=== PATIENT | male | born 1990 | race Caucasian/White ===

== ENCOUNTER 2016-06-11 21:29 | Observation (INO) | payer BC, OTHER ==
[~2016-06-11] VITALS: Ht 170.2 cm; Wt 75.0 kg
[~2016-06-11 21:29] MED LIST: GUAI100S6 PO; Z.0.NO CURRENT MEDS
[2016-06-11 21:34] VITALS: BP 163/95; PULSE 102; RESP 18; TEMP 98.4; O2SAT 100
[2016-06-11] MEDS ORDERED: CEPH-460 PO (21:40)
--- NOTE | 2016-06-11 21:42 | PD ---
HPI Chief Complaint: Chest Pain Time Seen by Provider: 21:42 Travel History International Travel<30 days: No Contact w/Intl Traveler<30days: No Traveled to known affect area: No History of Present Illness HPI 26-year-old male presents to the emergency department for evaluation of left- sided chest pain. Patient states that while at work he felt like his heart was racing and he had a left-sided chest discomfort. He reports it more as a pressure. He also reports muscle cramping throughout the day. He states that this time he is not having any pain. He did not have any nausea or vomiting or diaphoresis associated with this. Patient states that he does recreationally do cocaine and he did some cocaine last evening. He states he did not sleep well and did not eat anything today. He denies any IV drug abuse. He states he is on Keflex for a laceration to his foot and he took this without anything today. Denies any cardiac history. Denies any other recent illnesses, fever, or chills. He is no other symptoms to report PFSH Past Medical History Medical History: Denies Significant Hx Diminished Hearing: No Gastrointestinal Disorders: Yes (HX COLONOSCOPY, BOWEL INFLAMMATION) Musculoskeletal: Yes (LEFT TIBULA FX) Immunizations Current: Yes Social History Alcohol Use: No Tobacco Use: No Substance Use: No Allergies-Medications (Allergen,Severity, Reaction): Coded Allergies: Pediazole (Verified Allergy, Intermediate, RASH, 06/11/16) Reported Meds & Prescriptions Reported Meds & Active Scripts Active Reported Keflex (Cephalexin) 500 Mg Cap 500 Mg PO Q12H Review of Systems Except as stated in HPI: all other systems reviewed are Neg Physical Exam Narrative GENERAL: Well-nourished male patient, lying in bed in no acute distress SKIN: Focused skin assessment warm/dry. HEAD: Atraumatic. Normocephalic. EYES: Pupils equal and round. No scleral icterus. No injection or drainage. ENT: No nasal bleeding or discharge. Mucous membranes pink and moist. NECK: Trachea midline. No JVD. CARDIOVASCULAR: Tachycardic rate and rhythm. No murmur appreciated. RESPIRATORY: No accessory muscle use. Clear to auscultation. Breath sounds equal bilaterally. GASTROINTESTINAL: Abdomen soft, non-tender, nondistended. Hepatic and splenic margins not palpable. MUSCULOSKELETAL: No obvious deformities. No clubbing. No cyanosis. No edema. NEUROLOGICAL: Awake and alert. No obvious cranial nerve deficits. Motor grossly within normal limits. Normal speech. PSYCHIATRIC: Appropriate mood and affect Data Data Last Documented VS Vital Signs Date Time Temp Pulse Resp B/P Pulse Ox O2 Delivery O2 Flow Rate FiO2 06/11/16 23:06 100 18 147/87 100 Room Air 06/11/16 21:34 98.4 Orders Electrocardiogram (06/11/16 21:40) Basic Metabolic Panel (Bmp) (06/11/16 21:40) Ckmb (Isoenzyme) Profile (06/11/16 21:40) Complete Blood Count With Diff (06/11/16 21:40) Magnesium (Mg) (06/11/16 21:40) Prothrombin Time / Inr (Pt) (06/11/16 21:40) Act Partial Throm Time (Ptt) (06/11/16 21:40) Troponin I (06/11/16 21:40) Chest, Single Ap (06/11/16 21:40) Ecg Monitoring (06/11/16 21:40) Bilateral Bp Monitoring (06/11/16 21:40) Iv Access Insert/Monitor (06/11/16 21:40) Oximetry (06/11/16 21:40) Oxygen Administration (06/11/16 21:40) Sodium Chloride 0.9% Flush (Ns Flush) (06/11/16 21:45) Sodium Chlorid 0.9% 500 Ml Inj (Ns 500 M (06/11/16 21:45) Drug Screen, Random Urine (06/11/16 21:42) CKMB (06/11/16 21:45) CKMB% (06/11/16 21:45) Sodium Chlor 0.9% 1000 Ml Inj (Ns 1000 M (06/11/16 23:00) Sodium Chlor 0.9% 1000 Ml Inj (Ns 1000 M (06/11/16 23:00) Labs Laboratory Tests Test 06/11/16 06/11/16 21:45 22:35 White Blood Count 11.6 TH/MM3 Red Blood Count 5.18 MIL/MM3 Hemoglobin 15.2 GM/DL Hematocrit 45.2 % Mean Corpuscular Volume 87.4 FL Mean Corpuscular Hemoglobin 29.4 PG Mean Corpuscular Hemoglobin 33.7 % Concent Red Cell Distribution Width 13.1 % Platelet Count 243 TH/MM3 Mean Platelet Volume 7.4 FL Neutrophils (%) (Auto) 76.1 % Lymphocytes (%) (Auto) 14.3 % Monocytes (%) (Auto) 8.8 % Eosinophils (%) (Auto) 0.5 % Basophils (%) (Auto) 0.3 % Neutrophils # (Auto) 8.8 TH/MM3 Lymphocytes # (Auto) 1.7 TH/MM3 Monocytes # (Auto) 1.0 TH/MM3 Eosinophils # (Auto) 0.1 TH/MM3 Basophils # (Auto) 0.0 TH/MM3 CBC Comment DIFF FINAL Differential Comment Prothrombin Time 11.3 SEC Prothromb Time International 1.0 RATIO Ratio Activated Partial 24.1 SEC Thromboplast Time Sodium Level 135 MEQ/L Potassium Level 3.3 MEQ/L Chloride Level 101 MEQ/L Carbon Dioxide Level 23.8 MEQ/L Anion Gap 10 MEQ/L Blood Urea Nitrogen 5 MG/DL Creatinine 1.06 MG/DL Estimat Glomerular Filtration 84 ML/MIN Rate Random Glucose 101 MG/DL Calcium Level 9.0 MG/DL Magnesium Level 2.0 MG/DL Total Creatine Kinase 1839 U/L Creatine Kinase MB 18.2 NG/ML Creatine Kinase MB % 1.0 % Troponin I LESS THAN 0.02 NG/ML Urine Opiates Screen NEG Urine Barbiturates Screen NEG Urine Amphetamines Screen POS Urine Benzodiazepines Screen NEG Urine Cocaine Screen POS Urine Cannabinoids Screen NEG MDM Medical Decision Making Medical Screen Exam Complete: Yes Emergency Medical Condition: Yes Medical Record Reviewed: Yes Differential Diagnosis Chest wall pain versus pleuritic pain versus costochondritis versus less likely ACS Narrative Course 26 year-old male presents to emergency room for evaluation of chest pain. Patient does reports doing cocaine recreationally as recent as last evening. He is currently not having any pain. He is mildly tachycardic. EKG is without ST elevation or depression. Chest pain workup is initiated. Patient is given IV normal saline bolus. He is placed on workers compensation attorney. Lab work is obtained. CBC is without acute concern. BMP is with mild hypokalemia 3.3. Troponin is less than 0.02. Total creatine kinase is 1839. Toxicology is positive for amphetamines and cocaine. He has not yet made urine as being in the emergency department. I discussed the patient my attending physician agrees the patient benefit from observation and fluid resuscitation. Plan is discussed with patient and he is agreeable with this plan of care. A call has been placed to [facility]. Diagnosis Primary Impression: Rhabdomyolysis Qualified Code: M62.82 - Non-traumatic rhabdomyolysis Admitting Information Admitting Physician Requests: Observation Condition: Stable Christy Maki Jun 11, 2016 21:42
[2016-06-11] MEDS ORDERED: SODIUM CHLORIDE 0.9% FLUSH 10 ML FLUSH IVF PRN (21:45)
[2016-06-11] MEDS ORDERED: SODIUM CHLORID 0.9% 500 ML INJ 500 ML IV ONE (21:45)
[2016-06-11 21:59] LABS: AUTOMATED NEUTROPHIL # 8.8 TH/MM3 (1.8-7.7); BASOPHIL % 0.3 % (0.0-2.0); EOSINOPHIL # 0.1 TH/MM3 (0-0.4); EOSINOPHIL % 0.5 % (0.0-4.0); HEMATOCRIT 45.2 % (39.0-51.0); HEMO FLAGS DIFF FINAL; LYMPH % 14.3 % (9.0-44.0); LYMPHOCYTE # 1.7 TH/MM3 (1.0-4.8); MEAN CELL VOLUME 87.4 FL (80.0-100.0); MEAN CORPUSCULAR HEMOGLOBIN 29.4 PG (27.0-34.0); MEAN CORPUSCULAR HGB CONC 33.7 % (32.0-36.0); MONO % 8.8 % (0.0-8.0); NEUT % 76.1 % (16.0-70.0); PLATELET COUNT 243 TH/MM3 (150-450); RED BLOOD COUNT 5.18 MIL/MM3 (4.50-5.90); RED CELL DISTRIBUTION WIDTH 13.1 % (11.6-17.2); WHITE BLOOD COUNT 11.6 TH/MM3 (4.0-11.0)
--- NOTE | 2016-06-11 22:00 | RADRPT ---
EXAM DATE/TIME: 06/11/2016 21:39 [facility] COMPARISON: No previous studies available for comparison. INDICATIONS : Syncopal episode with chest pain. MEDICAL HISTORY : None. SURGICAL HISTORY : None. ENCOUNTER: Initial ACUITY: 1 day PAIN SCORE: 6/10 LOCATION: Bilateral chest FINDINGS: The lungs are clear without infiltrate, nodule, or mass. There is no appreciable pleural effusion fo r technique. Heart and mediastinum are unremarkable. CONCLUSION: No acute cardiopulmonary disease. Sukhwinder Pabon MD on June 11, 2016 at 21:58 Board Certified Radiologist. This report was verified electronically.
[2016-06-11 22:12] LABS: APTT (PATIENT) 24.1 SEC (24.3-30.1); PROTHROMBIN TIME - PATIENT 11.3 SEC (9.8-11.6)
[2016-06-11 22:27] LABS: ANION GAP 10 MEQ/L (5-15); BICARBONATE 23.8 MEQ/L (21.0-32.0); BLOOD UREA NITROGEN 5 MG/DL (7-18); CHLORIDE 101 MEQ/L (98-107); GLOMERULAR FILTRATION RATE 84 ML/MIN (>89); POTASSIUM 3.3 MEQ/L (3.5-5.1); SODIUM (NA) 135 MEQ/L (136-145)
[2016-06-11 22:42] LABS: CREATINE KINASE 1839 U/L (39-308)
[2016-06-11 22:55] LABS: CKMB 18.2 NG/ML (0.5-3.6)
[2016-06-11 22:59] LABS: AMPHETAMINE, URINE POS (NEG); BARBITURATES, URINE NEG (NEG); COCAINE, URINE POS (NEG)
[2016-06-11] MEDS ORDERED: SODIUM CHLOR 0.9% 1000 ML INJ 1,000 ML IV ONE ×2 (23:00)
[2016-06-11 23:06] VITALS: BP 147/87; PULSE 100; RESP 18; O2SAT 100
[2016-06-11] MEDS ORDERED: ACETAMINOPHEN 325 MG TAB PO PRN (23:30)
[2016-06-11] MEDS ORDERED: SODIUM CHLORIDE 0.9% FLUSH 10 ML FLUSH IV FLUSH PRN (23:30)
[2016-06-11] MEDS ORDERED: NALOXONE HCL 0.4 MG/ML AMP IV PRN (23:30)
[2016-06-11] MEDS ORDERED: ONDANSETRON HCL 4 MG/2 ML VIAL IVP PRN (23:30)
[2016-06-12] MEDS ORDERED: ENOXAPARIN SODIUM 40 MG/0.4 ML SYRINGE SQ SCH
[2016-06-12] MEDS: SODIUM CHLOR 0.9% 1000 ML INJ 1,000 ML IV SCH ×2 (00:53→09:21)
[2016-06-12 01:00] VITALS: BP 129/80; PULSE 81; RESP 20; TEMP 99.1; O2SAT 98
--- NOTE | 2016-06-12 02:09 | HHI.HP ---
[facility] Service [facility] Primary Care Physician No Primary Care Physician Admission Diagnosis rhabdomyolysis; chest pressure; muscle cramps Diagnoses: (1) Rhabdomyolysis Diagnosis: Principal (2) Dehydration Diagnosis: Principal Travel History International Travel<30 Days: No Contact w/Intl Traveler <30 Da: No Traveled to Known Affected Are: No History of Present Illness Mr. Gerard is a 26 year old male. He is here with chest wall pains at his left upper chest and is found to have rhabdomyolysis and dehydration. UDS shows cocaine and methamphetamines. Etiology for his rhabdomyolysis and dehydration is likely from drug abuse. No other complaints. No other health conditions. Review of Systems Constitutional: DENIES: Fever, Chills Respiratory: DENIES: Shortness of breath Cardiovascular: COMPLAINS OF: Chest pain, DENIES: Palpitations Gastrointestinal: DENIES: Abdominal pain, Black stools Musculoskeletal: DENIES: Joint pain Hematologic/lymphatic: DENIES: Bruising Immunologic/allergic: DENIES: Eczema Psychiatric: DENIES: Confusion, Hallucinations Past Family Social History Past Medical History none Past Surgical History none Reported Medications Reported Meds & Active Scripts Active Reported Keflex (Cephalexin) 500 Mg Cap 500 Mg PO Q12H Allergies: Coded Allergies: Pediazole (Verified Allergy, Intermediate, RASH, 06/11/16) Active Ordered Medications Administered Medications Medications (Trade) Dose Ordered Sig/Gracy Route PRN Reason Start Time Stop Time Status Last Admin Dose Admin Sodium Chloride (NS 1000 ml Inj) 1,000 ml @ 150 mls/hr Q6H40M IV 06/11/16 23:28 06/12/16 00:53 Family History none Social History No smoking Alcohol use Drug abuse (cocaine, methamphetamines) Physical Exam Vital Signs Vital Signs Date Time Temp Pulse Resp B/P Pulse Ox O2 Delivery O2 Flow Rate FiO2 06/12/16 01:00 99.1 81 20 129/80 98 06/11/16 23:06 100 18 147/87 100 Room Air 06/11/16 21:40 Room Air 06/11/16 21:34 98.4 102 18 163/95 100 Physical Exam GENERAL: NAD, A&Ox3 SKIN: Warm and dry. HEAD: Normocephalic. EYES: No scleral icterus. No injection or drainage. NECK: Supple, trachea midline. No JVD or lymphadenopathy. CARDIOVASCULAR: Regular rate and rhythm without murmurs, gallops, or rubs. RESPIRATORY: Breath sounds equal bilaterally. No accessory muscle use. GASTROINTESTINAL: Abdomen soft, non-tender, nondistended. MUSCULOSKELETAL: No cyanosis, or edema. BACK: Nontender without obvious deformity. No CVA tenderness. Laboratory Laboratory Tests Test 06/11/16 06/11/16 21:45 22:35 White Blood Count 11.6 Red Blood Count 5.18 Hemoglobin 15.2 Hematocrit 45.2 Mean Corpuscular Volume 87.4 Mean Corpuscular Hemoglobin 29.4 Mean Corpuscular Hemoglobin 33.7 Concent Red Cell Distribution Width 13.1 Platelet Count 243 Mean Platelet Volume 7.4 Neutrophils (%) (Auto) 76.1 Lymphocytes (%) (Auto) 14.3 Monocytes (%) (Auto) 8.8 Eosinophils (%) (Auto) 0.5 Basophils (%) (Auto) 0.3 Neutrophils # (Auto) 8.8 Lymphocytes # (Auto) 1.7 Monocytes # (Auto) 1.0 Eosinophils # (Auto) 0.1 Basophils # (Auto) 0.0 CBC Comment DIFF FINAL Differential Comment Prothrombin Time 11.3 Prothromb Time International 1.0 Ratio Activated Partial 24.1 Thromboplast Time Sodium Level 135 Potassium Level 3.3 Chloride Level 101 Carbon Dioxide Level 23.8 Anion Gap 10 Blood Urea Nitrogen 5 Creatinine 1.06 Estimat Glomerular Filtration 84 Rate Random Glucose 101 Calcium Level 9.0 Magnesium Level 2.0 Total Creatine Kinase 1839 Creatine Kinase MB 18.2 Creatine Kinase MB % 1.0 Troponin I LESS THAN 0.02 Urine Opiates Screen NEG Urine Barbiturates Screen NEG Urine Amphetamines Screen POS Urine Benzodiazepines Screen NEG Urine Cocaine Screen POS Urine Cannabinoids Screen NEG Result Diagram: 06/11/16214406/11/162144 Imaging Last Impressions Chest X-Ray 06/11/162139 Signed Impressions: Service Date/Time: Saturday, June 11, 2016 21:39 - CONCLUSION: No acute cardiopulmonary disease. Sukhwinder Pabon MD Assessment and Plan Problem List: (1) Rhabdomyolysis ICD Code: M62.82 Status: Acute (2) Dehydration ICD Code: E86.0 Status: Acute Assessment and Plan Rhabdomyalysis Dehydration Follow total CK IV Hydration Etiology may be related to poor oral hydration and drug abuse Cocaine Use Methamphetamine Use Cease use for safety and health Problem Qualifiers (1) Rhabdomyolysis: Qualified Code: M62.82 - Non-traumatic rhabdomyolysis Yury Brown MD June 12, 2016 02:09
[2016-06-12 07:26] LABS: AUTOMATED NEUTROPHIL # 5.2 TH/MM3 (1.8-7.7); BASOPHIL % 0.4 % (0.0-2.0); EOSINOPHIL # 0.1 TH/MM3 (0-0.4); EOSINOPHIL % 1.6 % (0.0-4.0); HEMO FLAGS DIFF FINAL; LYMPHOCYTE # 2.5 TH/MM3 (1.0-4.8); MEAN CELL VOLUME 88.8 FL (80.0-100.0); MEAN CORPUSCULAR HEMOGLOBIN 29.7 PG (27.0-34.0); MEAN CORPUSCULAR HGB CONC 33.5 % (32.0-36.0); MONO % 9.1 % (0.0-8.0); NEUT % 59.9 % (16.0-70.0); PLATELET COUNT 180 TH/MM3 (150-450); RED BLOOD COUNT 4.72 MIL/MM3 (4.50-5.90); RED CELL DISTRIBUTION WIDTH 13.3 % (11.6-17.2); WHITE BLOOD COUNT 8.7 TH/MM3 (4.0-11.0)
[2016-06-12 07:39] VITALS: BP 132/84; PULSE 76; RESP 21; TEMP 98.3; O2SAT 98
[2016-06-12 08:01] LABS: ALKALINE PHOSPHATASE 89 U/L (45-117); ALT (GPT) 39 U/L (12-78); ANION GAP 7 MEQ/L (5-15); AST (GOT) 49 U/L (15-37); BICARBONATE 25.2 MEQ/L (21.0-32.0); BLOOD UREA NITROGEN 6 MG/DL (7-18); CHLORIDE 110 MEQ/L (98-107); CREATINE KINASE 1033 U/L (39-308); GLOMERULAR FILTRATION RATE 99 ML/MIN (>89); POTASSIUM 3.8 MEQ/L (3.5-5.1); SODIUM (NA) 142 MEQ/L (136-145); TOTAL BILIRUBIN ADULT 1.1 MG/DL (0.2-1.0)
[2016-06-12 08:23] LABS: CKMB 9.4 NG/ML (0.5-3.6)
[2016-06-12] MEDS ORDERED: SODIUM CHLORIDE 0.9% FLUSH 10 ML FLUSH IV FLUSH SCH (09:00)
[2016-06-12 10:06] VITALS: PULSE 81
--- NOTE | 2016-06-12 12:30 | HHI.DS ---
Discharge Summary Admission Date Jun 11, 2016 at 23:27 Discharge Date: June 12, 2016 Admitting Diagnosis rhabdomyolysis; chest pressure; muscle cramps (1) Rhabdomyolysis ICD Code: M62.82 Diagnosis: Principal (2) Dehydration ICD Code: E86.0 Diagnosis: Principal Procedures none Brief History - From Admission Mr. Gerard is a 26 year old male. He is here with chest wall pains at his left upper chest and is found to have rhabdomyolysis and dehydration. UDS shows cocaine and methamphetamines. Etiology for his rhabdomyolysis and dehydration is likely from drug abuse. No other complaints. No other health conditions. CBC/BMP: 06/12/16 0615 06/12/16 0614 Significant Findings Laboratory Tests Test 06/11/16 06/11/16 06/12/16 06/12/16 21:45 22:35 06:14 06:15 White Blood Count 11.6 TH/MM3 (4.0-11.0) Neutrophils (%) (Auto) 76.1 % (16.0-70.0) Monocytes (%) (Auto) 8.8 % (0.0-8.0) 9.1 % (0.0-8.0) Neutrophils # (Auto) 8.8 TH/MM3 (1.8-7.7) Monocytes # (Auto) 1.0 TH/MM3 (0-0.9) Activated Partial 24.1 SEC Thromboplast Time (24.3-30.1) Sodium Level 135 MEQ/L (136-145) Potassium Level 3.3 MEQ/L (3.5-5.1) Blood Urea Nitrogen 5 MG/DL (7-18) 6 MG/DL (7-18) Estimat Glomerular Filtration 84 ML/MIN (>89) Rate Total Creatine Kinase 1839 U/L 1033 U/L (39-308) (39-308) Creatine Kinase MB 18.2 NG/ML 9.4 NG/ML (0.5-3.6) (0.5-3.6) Troponin I LESS THAN 0.02 NG/ML (0.02-0.05) Urine Amphetamines Screen POS (NEG) Urine Cocaine Screen POS (NEG) Chloride Level 110 MEQ/L (98-107) Calcium Level 8.4 MG/DL (8.5-10.1) Total Bilirubin 1.1 MG/DL (0.2-1.0) Aspartate Amino Transf 49 U/L (15-37) (AST/SGOT) Total Protein 6.3 GM/DL (6.4-8.2) Imaging Last Impressions Chest X-Ray 06/11/16 2140 Signed Impressions: Service Date/Time: Saturday, June 11, 2016 21:39 - CONCLUSION: No acute cardiopulmonary disease. Sukhwinder Pabon MD PE at Discharge GENERAL: NAD, A&Ox3 SKIN: Warm and dry. HEAD: Normocephalic. EYES: No scleral icterus. No injection or drainage. NECK: Supple, trachea midline. No JVD or lymphadenopathy. CARDIOVASCULAR: Regular rate and rhythm without murmurs, gallops, or rubs. RESPIRATORY: Breath sounds equal bilaterally. No accessory muscle use. GASTROINTESTINAL: Abdomen soft, non-tender, nondistended. MUSCULOSKELETAL: No cyanosis, or edema. BACK: Nontender without obvious deformity. No CVA tenderness. Pt update on day of discharge Feeling better this morning. Medically stable for discharge. Hospital Course Mr. Gerard is a 26 year old male. He is here for dehydration and rhabdomyolysis related to amphetamines and cocaine. With IV Hydration this has significantly improved by this morning and he is safe for discharge to home today, on oral hydration. Medically stable for discharge. Pt Condition on Discharge: Stable Discharge Disposition: Discharge Home Discharge Time: <= 30 minutes Discharge Instructions DIET: Follow Instructions for: As Tolerated, No Restrictions Activities you can perform: Regular-No Restrictions Follow up Referrals: PCP Follow-up - 2 Weeks Continued Medications: Cephalexin (Keflex) 500 Mg Cap 500 MG PO Q12H Infection Ref 0 CAP Yury Brown MD June 12, 2016 12:30
--- NOTE | 2016-06-12 22:51 | EKG ---
Date Performed: 06/11/2016 Time Performed: 21:41:42 PTAGE: 26 years EKG: SINUS TACHYCARDIA WITH SHORT HI INTERVAL BORDERLINE LEFT AXIS DEVIATION MODERATE ST DEPRESS ION ABNORMAL ECG NO PREVIOUS TRACING DOCTOR: Valentin Yepez Interpretating Date/Time 06/12/2016 22:49:43
== END 2016-06-12 11:38 | disposition home or self-care (01) ==
LOC: NEPE 21:29 → NEDA 23:27 → NEPFCDU 06-12 00:54
PROVIDERS: ADMIT Hospitalist; ATTEND Hospitalist
DX: M62.82 Rhabdomyolysis (principal); E87.6 Hypokalemia; R00.0 Tachycardia, unspecified; E86.0 Dehydration; F14.10 Cocaine abuse, uncomplicated; F15.90 Other stimulant use, unspecified, uncomplicated; R94.31 Abnormal electrocardiogram [ECG] [EKG]
CPT/HCPCS: 71010; 80048; 80053; 80307; 82550; 82552; 83735; 84484; 85025; 85610; 85730; 93005; 99285; G0378; J7030; J7040